=== PATIENT | male | born 1960 | race Caucasian/White ===

== ENCOUNTER 2020-01-06 09:15 | Emergency (ER) | payer OTHER ==
[~2020-01-06] VITALS: Ht 172.7 cm; Wt 80.7 kg
[~2020-01-06 09:15] MED LIST: ALLEGRA ALLERGY60 MG; ALLERGY RELIEF60 MG PO; APAP500 PO; IBUPROFEN 400400 M2 PO
[2020-01-06 09:47] LABS: ABSOLUTE BASOPHILS 0.1 thou/uL (0.0-0.2); ABSOLUTE EOSINOPHILS 0.2 thou/uL (0.0-0.7); ABSOLUTE LYMPHOCYTES 1.2 thou/uL (0.8-5.3); ABSOLUTE MONOCYTES 0.4 thou/uL (0.0-1.2); ABSOLUTE NEUTROPHILS 3.2 thou/uL (1.6-8.1); BASOPHILS 1.1 %; EOSINOPHILS 3.8 %; HEMATOCRIT 40.8 % (42.0-52.0); HEMOGLOBIN 14.3 gm/dL (14.0-18.0); LYMPHOCYTES 24.7 %; MCH 31.8 pg (26.0-34.0); MCHC 35.1 g/dL (28.0-37.0); MCV 90.4 fL (80.0-100.0); MONOCYTES 7.7 %; MPV 8.9 fl. (7.2-11.1); NUCLEATED RBCS 0 /100WBC; PLATELET COUNT* 181 thou/uL (150-400); POLYS 62.7 %; RBC 4.51 mil/uL (4.50-6.00); RDW-CV 13.4 % (10.5-14.5)
[2020-01-06 09:56] LABS: CALCIUM 8.4 mg/dL (8.5-10.1); CREATININE 1.1 mg/dL (0.6-1.3); POTASSIUM 3.9 mmol/L (3.5-5.1)
[2020-01-06 10:00] LABS: ALBUMIN 3.7 g/dL (3.4-5.0); TOTAL BILIRUBIN 0.8 mg/dL (<0.1-1.0); TOTAL PROTEIN 7.2 g/dL (6.4-8.2)
[2020-01-06 11:09] LABS: APTT 22.9 Seconds (25.0-31.3); PROTIME 10.7 Seconds (9.20-11.50)
[2020-01-06 14:04] LABS: URINE BILIRUBIN NEGATIVE (Negative); URINE BLOOD NEGATIVE (Negative); URINE CLARITY CLEAR; URINE COLOR YELLOW; URINE GLUCOSE-RANDOM NEGATIVE (Negative); URINE KETONES NEGATIVE (Negative); URINE LEUKOCYTES-REFLEX NEGATIVE (Negative); URINE NITRITE-REFLEX NEGATIVE (Negative); URINE PROTEIN NEGATIVE (Negative); URINE UROBILINOGEN 0.2 E.U./dl (0.2-1.0)
[2020-01-06 14:27] VITALS: BP 129/82
--- NOTE | 2020-01-07 08:57 | EKG ---
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
== END 2020-01-06 14:28 | disposition home or self-care (01) ==
LOC: M.ERS 09:15
PROVIDERS: Family Medicine
DX: R55 Syncope and collapse (principal); Z88.6 Allergy status to analgesic agent